=== PATIENT | female | born 1965 | race Caucasian/White ===

== ENCOUNTER 2016-10-11 07:32 | Day surgery (SDC) | payer BC ==
[~2016-10-11 07:32] MED LIST: LIDOCAINE W/ SODIUM BICARB 0.5 ML SYR ONE; Lactated Ringers 1,000 ML PRIMARY IV ONE; fentaNYL Inj 100 MCG/2 ML VIAL ONE
--- NOTE | 2016-10-11 08:34 | GEN.OPNOTE ---
Colonoscopy Procedure Note Surgery Date: 10/11/16 Preoperative Diagnosis: Colon cancer screening. Postoperative Diagnosis: Colon cancer screening. Procedure: Complete colonoscopy. Surgeon: Joe Randall MD Anesthesia Provider: Rolando Adhikari CRNA Anesthesia Type: MAC Indications: Patient is a 51-year-old female for her initial screening colonoscopy. Findings: Prep : [Excellent] Cecum : [Normal] Ascending : [Normal] Transverse : [Normal] Sigmoid : [Normal] Rectum : [Normal] Digital Rectal Exam : [Normal with some hemorrhoidal tissue.] Terminal ileum:[Normal] A lubricated flexible colonoscope was inserted and passed to the blind end of the cecum. The terminal ileum was intubated and appeared normal. The scope was withdrawn into the cecum. Air was aspirated as the scope was withdrawn. The entire colonoscopy was normal without polyp, tumor, neoplastic mass, infectious or inflammatory process. The scope was withdrawn completing the procedure. The patient tolerated the procedure well without complication. She was taken to outpatient surgery in stable condition. Follow-up will be with my office on an as-needed basis. It is recommended she undergo follow-up colonoscopy in 10 years time.
[2016-10-11 11:31] VITALS: RESP 16; TEMP 97.2
== END 2016-10-11 09:04 | disposition home or self-care (01) ==
LOC: SDSC 07:32
PROVIDERS: ATTEND Surgery
DX: Z12.11 Encounter for screening for malignant neoplasm of colon (principal)
CPT/HCPCS: 45378; J2704; J3010; J7120